=== PATIENT | male | born 1990 | race Caucasian/White ===

== ENCOUNTER 2016-12-27 10:51 | Emergency (ER) | payer MEDICAID, SELFPAY ==
[2016-12-27 11:21] VITALS: BP 117/61; PULSE 61; RESP 18; TEMP 97.8; O2SAT 100
--- NOTE | 2016-12-27 11:37 | ED PDOC ---
HPI: Dental Pain/Injury Time Seen by Provider: 12/27/16 11:35 Chief Complaint (Nursing): Dental Pain Chief Complaint (Provider): dental pain History Per: Patient Additional Complaint(s): 26-year-old male with no past medical history presents to emergency department with left upper mandible dental pain ongoing for about 1 month. Patient states Advil does help the pain. Patient has no primary doctor or dentist so he came to ED today for further evaluation. He is tolerating liquids and solids. Current pain is 6 out of 10. Advil last taken 2 days ago. He denies any recent trauma or injury. Past Medical History Reviewed: Historical Data, Nursing Documentation, Vital Signs Vital Signs: Last Vital Signs Temp 97.8 F 12/27/16 11:18 Pulse 61 12/27/16 11:18 Resp 18 12/27/16 11:18 BP 117/61 12/27/16 11:18 Pulse Ox 100 12/27/16 11:18 - Medical History PMH: Anxiety, Asthma, Depression - Surgical History Surgical History: No Surg Hx - Family History Family History: States: No Known Family Hx - Living Arrangements Living Arrangements: With Family - Social History Current smoker - smoking cessation education provided: Yes Alcohol: None Drugs: Denies - Home Medications Home Medications: Ambulatory Orders Medication Instructions Recorded Risperidone [Risperdal M-TAB] 1 mg PO HS #30 odt 03/25/15 Ibuprofen [Motrin Tab] 800 mg PO Q8 PRN #20 tab 12/27/16 - Allergies Allergies/Adverse Reactions: Allergies Allergy/AdvReac Type Severity Reaction Status Date / Time No Known Allergies Allergy Verified 12/27/16 11:18 Review of Systems ROS Statement: Except As Marked, All Systems Reviewed And Found Negative Constitutional: Negative for: Fever ENT: Positive for: Other (dental pain x 1 month) Physical Exam - Reviewed Nursing Documentation Reviewed: Yes Vital Signs Reviewed: Yes - Physical Exam Appears: Positive for: Well Skin: Negative for: Rash Eye Exam: Positive for: Normal appearance, EOMI, PERRL ENT: Positive for: Other (Mild tenderness to percussion left upper mandible molar teeth with no visible dental caries or decay, no fractured teeth, overall dentition intact, airway patent, uvula midline, no dental abscess, no gingival erythema) Neurologic/Psych: Positive for: Alert, Oriented - ECG O2 Sat by Pulse Oximetry: 100 Pulse Ox Interpretation: Normal Medical Decision Making Medical Decision Making: Impression: Dental pain Plan: PO motrin dose Rx motrin, list of dental clinic referrals provided. Patient was counseled regarding smoking cessation. Disposition - Clinical Impression Clinical Impression: Pain, dental - Patient ED Disposition Is Patient to be Admitted: No Counseled Patient/Family Regarding: Diagnosis, Need For Followup, Rx Given - Disposition Referrals: [facility] [Outside] Disposition: Routine/Home Disposition Time: 11:38 Condition: STABLE Additional Instructions: Take prescription medications as directed as needed for pain. Follow-up with dentist as soon as possible. Prescriptions: Ibuprofen [Motrin Tab] 800 mg PO Q8 PRN #20 tab PRN Reason: Pain, Moderate (4-7) Instructions: Toothache (ED)
== END 2016-12-27 12:36 | disposition home or self-care (01) ==
LOC: H.ER 10:51
DX: K08.89 Other specified disorders of teeth and supporting structures (principal)

== ENCOUNTER 2017-01-22 23:20 | Emergency (ER) | payer MEDICAID ==
[2017-01-22 23:38] VITALS: BP 135/65; PULSE 58; RESP 16; TEMP 98.2; O2SAT 100
[2017-01-22] MEDS ORDERED: DiphenhydrAMINE 50 mg/ml Inj IVP STA (23:49)
[2017-01-22] MEDS ORDERED: DiphenhydrAMINE 50 mg/ml Inj ONE (23:56)
--- NOTE | 2017-01-23 00:02 | ED PDOC ---
HPI: General Adult Time Seen by Provider: 01/22/17 23:34 Chief Complaint (Nursing): Headache History Per: Patient Additional Complaint(s): Pt. states for the past 3 weeks he's had intermittent L retro-orbital headache associated with light sensitivity but no nausea or vomiting. He saw his PMD on 01/19/17 and was prescribed Fioricet which has provided transient relief up until today. Denies fever, head injury, rash, hx of headaches, neck pain/ stiffness. Past Medical History Reviewed: Historical Data, Nursing Documentation, Vital Signs Vital Signs: Last Vital Signs Temp 98.2 F 01/22/17 23:21 Pulse 58 L 01/22/17 23:21 Resp 16 01/22/17 23:21 BP 135/65 01/22/17 23:21 Pulse Ox 100 01/23/17 00:05 - Medical History PMH: Anxiety, Asthma, Depression - Family History Family History: States: No Known Family Hx - Immunization History Hx Tetanus Toxoid Vaccination: No Hx Influenza Vaccination: No Hx Pneumococcal Vaccination: No - Home Medications Home Medications: Ambulatory Orders Medication Instructions Recorded Risperidone [Risperdal M-TAB] 1 mg PO HS #30 odt 03/25/15 Ibuprofen [Motrin Tab] 800 mg PO Q8 PRN #20 tab 12/27/16 Butalb/Acetaminophen/Caffeine 1 tab PO PRN PRN 01/22/17 [Zebutal 50-325-40 mg Capsule] Metoclopramide HCl [Reglan] 10 mg PO Q8 PRN #15 tablet 01/23/17 Naproxen [Naprosyn] 500 mg PO BID PRN #30 tab 01/23/17 - Allergies Allergies/Adverse Reactions: Allergies Allergy/AdvReac Type Severity Reaction Status Date / Time No Known Allergies Allergy Verified 12/27/16 11:18 Review of Systems ROS Statement: Except As Marked, All Systems Reviewed And Found Negative Neurological: Positive for: Headache Physical Exam - Reviewed Nursing Documentation Reviewed: Yes Vital Signs Reviewed: Yes - Physical Exam Appears: Positive for: Well, Non-toxic, No Acute Distress Head Exam: Positive for: ATRAUMATIC, NORMAL INSPECTION, NORMOCEPHALIC Skin: Positive for: Normal Color, Warm. Negative for: Rash Eye Exam: Positive for: Normal appearance, EOMI, PERRL, Other (photosensitivity) ENT: Positive for: Normal ENT Inspection Neck: Positive for: Normal, Painless ROM Cardiovascular/Chest: Positive for: Regular Rate, Rhythm Respiratory: Positive for: CNT, Normal Breath Sounds Gastrointestinal/Abdominal: Positive for: Normal Exam, Soft. Negative for: Tenderness Back: Positive for: Normal Inspection Extremity: Positive for: Normal ROM Neurologic/Psych: Positive for: Alert, Oriented - ECG O2 Sat by Pulse Oximetry: 100 - Progress ED Course And Treament: CT head w/o contrast: negative. Pt. states he has not taken Risperdal in > 1 year. Reglan 10mg IV, benadryl 50mg IV given. Re-evaluation Time: 01:04 (Reports good relief of headache. Repeat neuro exam is non-focal. ) Condition: Re-examined, Improved Disposition - Clinical Impression Clinical Impression: Migraine - Patient ED Disposition Is Patient to be Admitted: No - Disposition Disposition: Routine/Home Disposition Time: 01:05 Condition: IMPROVED Additional Instructions: Follow up with your PMD in 2 days for further evaluation. Prescriptions: Metoclopramide HCl [Reglan] 10 mg PO Q8 PRN #15 tablet PRN Reason: headache or nausea Naproxen [Naprosyn] 500 mg PO BID PRN #30 tab PRN Reason: pain Instructions: General Headache (ED)
--- NOTE | 2017-01-23 00:34 | CT ---
EXAM: CT Head Without Intravenous Contrast CLINICAL HISTORY: 26 years old, male; Pain; Headache TECHNIQUE: Axial computed tomography images of the head/brain without intravenous contrast. This CT exam was performed using one or more of the following dose reduction techniques: automated exposure control, adjustment of the mA and/or kV according to patient size, and/or use of iterative reconstruction technique. Coronal and sagittal reformatted images were created and reviewed. COMPARISON: No relevant prior studies available. FINDINGS: Brain: No acute intracranial hemorrhage. No significant white matter disease. No edema. Ventricles: No significant ventriculomegaly. Bones: No acute displaced fracture. Sinuses: Periosteal thickening is identified within the bilateral ethmoid sinuses. Mastoid air cells: Unremarkable as visualized. No mastoid effusion. IMPRESSION: No acute intracranial hemorrhage, or suspicious mass effect. Inflammatory sinus disease.
== END 2017-01-23 02:38 | disposition home or self-care (01) ==
LOC: H.ER 23:20
DX: R51 Headache (principal)